=== PATIENT | male | born 1980 | race Caucasian/White ===

== ENCOUNTER 2017-04-03 00:03 | Emergency (ER) | payer OTHER ==
[2017-04-03 00:39] VITALS: BP 132/95
== END 2017-04-03 00:40 | disposition other institution (70) ==
LOC: ED 00:03
DX: Z02.89 Encounter for other administrative examinations (principal); F99 Mental disorder, not otherwise specified; R44.0 Auditory hallucinations; F17.210 Nicotine dependence, cigarettes, uncomplicated